=== PATIENT | male | born 1970 | race Caucasian/White ===

== ENCOUNTER 2018-05-03 12:31 | Emergency (ER) | payer OTHER ==
[~2018-05-03] VITALS: Ht 175.3 cm; Wt 90.7 kg
[2018-05-03] MEDS ORDERED: IV NORMAL SALINE 1000ML BAG 1,000 ML IV ONE (12:45)
[2018-05-03] MEDS ORDERED: fentaNYL PF VIAL 100 MCG/2 ML VIAL IV ONE (13:00)
[2018-05-03 13:11] LABS: BASO # 0.1 x10^3/uL (0.0-0.2); BASO % 1 % (0-3); CALCIUM 8.8 mg/dL (8.5-10.1); CREATININE 1.1 mg/dL (0.7-1.3); EOS # 0.3 x10^3/uL (0.0-0.7); EOS % 3 % (0-3); GFR 71.8; HEMATOCRIT 48.8 % (39.0-53.0); LYMPH # 2.1 x10^3/uL (1.0-4.8); LYMPH % 21 % (24-48); MEAN CORPUSCULAR HEMOGLOBIN 32 pg (25-35); MEAN CORPUSCULAR HGB CONC 35 g/dL (31-37); MEAN CORPUSCULAR VOLUME 93 fL (79-100); MONO # 0.7 x10^3/uL (0.0-1.1); MONO % 7 % (0-9); NEUT # 6.8 x10^3uL (1.8-7.7); NEUT % 68 % (31-73); PLATELET COUNT 224 x10^3/uL (140-400); POTASSIUM 3.9 mmol/L (3.5-5.1); RED BLOOD COUNT 5.27 x10^6/uL (4.30-5.70); RED CELL DISTRIBUTION WIDTH 13.8 % (11.5-14.5); WHITE BLOOD COUNT 9.9 x10^3/uL (4.0-11.0)
[2018-05-03] MEDS ORDERED: IOHEXOL 300 MG/ML 100ML VIAL. IV ONE (13:15)
[2018-05-03 13:16] LABS: ALBUMIN 3.7 g/dL (3.4-5.0); DIRECT BILIRUBIN 0.1 mg/dL (0.0-0.2); TOTAL BILIRUBIN 0.5 mg/dL (0.2-1.0); TOTAL PROTEIN 7.1 g/dL (6.4-8.2)
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
[2018-05-03] MEDS ORDERED: HYDR-3164 PO (14:52)
[2018-05-03] MEDS ORDERED: IBUP-1060 PO (14:52)
[2018-05-03] MEDS ORDERED: CYCL5TAB PO (14:52)
[2018-05-03 14:56] VITALS: BP 166/93
--- NOTE | 2018-05-04 10:04 | EKG ---
[facility] [address] [place] [address] Test Date: 2018-05-03 Test Time: 13:08:52 Pat Name: ALTON FARRIS Department: Room: Gender: M Philosophy Lecturer: : 1970 Requested By: OCTAVIANO COLIN Order Number: [id number] Reading MD: Measurements Intervals Harris Rate: 106 P: 129 KS: 162 QRS: 94 QRSD: 78 T: 160 QT: 316 QTc: 421 Interpretive Statements SUPRAVENTRICULAR RHYTHM RIGHTWARD AXIS QRS(T) CONTOUR ABNORMALITY CONSIDER ANTEROLATERAL MYOCARDIAL DAMAGE POSSIBLY ABNORMAL ECG RI6.01 No previous ECG available for comparison
== END 2018-05-03 15:05 | disposition home or self-care (01) ==
LOC: ER 12:31
DX: R07.2 Precordial pain (principal); S09.90XA Unspecified injury of head, initial encounter; S19.9XXA Unspecified injury of neck, initial encounter; Z88.1 Allergy status to other antibiotic agents; V43.52XA Car driver injured in collision with other type car in traffic accident, initial encounter; Y93.I9 Activity, other involving external motion; Y92.488 Other paved roadways as the place of occurrence of the external cause; Y99.8 Other external cause status
CPT/HCPCS: 36415; 70450; 71260; 72125; 74177; 80048; 80076; 83690; 84484; 85025; 93005; 96374; 99285; G0480; J3010; J7030; Q9967; 96361; 99284-25

== ENCOUNTER 2018-10-12 20:35 | Emergency (ER) | payer OTHER, SELFPAY ==
[~2018-10-12] VITALS: Ht 177.8 cm; Wt 90.7 kg
[2018-10-12 20:35] VITALS: BP 161/88
[~2018-10-12 20:35] MED LIST: CYCL5TAB PO; HYDR-3164 PO; IBUP-1060 PO
[2018-10-12] MEDS ORDERED: HYDROcodone/APAP 5/325MG 1 TAB TABLET PO ONE (21:30)
[2018-10-12] MEDS ORDERED: ONDANSETRON ODT 4 MG TAB.RAPDIS. PO ONE (21:30)
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
== END 2018-10-12 22:30 | disposition home or self-care (01) ==
LOC: ER 20:35
DX: S01.81XA Laceration without foreign body of other part of head, initial encounter (principal); R11.0 Nausea; R42 Dizziness and giddiness; F17.210 Nicotine dependence, cigarettes, uncomplicated; Z88.1 Allergy status to other antibiotic agents; Y00.XXXA Assault by blunt object, initial encounter; Y93.89 Activity, other specified; Y92.89 Other specified places as the place of occurrence of the external cause; Y99.8 Other external cause status
CPT/HCPCS: 70450; 99284; Q0162

== ENCOUNTER → 2020-08-26 | Outpatient (CLI) | payer OTHER ==
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
== END ==
LOC: RAD 12:34
PROVIDERS: ATTEND Family Medicine
DX: M47.816 Spondylosis without myelopathy or radiculopathy, lumbar region (principal)
CPT/HCPCS: 72100